=== PATIENT | female | born 2000 | race Caucasian/White ===

== ENCOUNTER 2024-07-27 11:03 | Inpatient (IN) | payer MEDICAID ==
[~2024-07-27] VITALS: Ht 170.2 cm; Wt 116.1 kg
[2024-07-27] MEDS ORDERED: LEVO75 PO (11:36)
[2024-07-27] MEDS ORDERED: FAMO20 PO (11:36)
[2024-07-27] MEDS ORDERED: RISP1TAB48 PO (11:36)
[2024-07-27] MEDS ORDERED: RISP2TAB45 PO (11:36)
[2024-07-27 11:52] LABS: COVID AG,FIA SOURCE NASAL SWAB
[2024-07-27 11:56] LABS: BASOPHILS % (AUTO) 0.4 % (0.0-2.0); EOSINOPHILS % (AUTO) 2.1 % (1.0-6.0); HEMATOCRIT 41.2 % (36-46); HEMOGLOBIN 13.6 g/dL (12.0-16.0); LYMPHOCYTES # (AUTO) 1.6 K/uL (1.0-4.8); LYMPHOCYTES % (AUTO) 38.7 % (22.0-44.0); MEAN CORPUSCULAR HEMOGLOBIN 30.4 pg (26.0-34.0); MEAN CORPUSCULAR HGB CONC 33.1 G/dL (31.0-37.0); MEAN CORPUSCULAR VOLUME 92 fL (80-100); MONOCYTES # (AUTO) 0.3 K/uL (0.1-1.0); MONOCYTES % (AUTO) 8.6 % (2.0-9.0); NEUTROPHILS % (AUTO) 50.2 % (40.0-70.0); PLATELET COUNT (AUTO) 198 K/uL (150-450); RED BLOOD CELL COUNT(AUTO) 4.48 MIL/uL (4.00-5.20); RED CELL DISTRIBUTION WIDTH 11.8 % (11.5-14.5)
[2024-07-27 12:12] LABS: SARS-COV2 (COVID) ANTIGEN,FIA Negative (Negative)
[2024-07-27 12:16] LABS: ANION GAP 2 mmol/L (8-16); CALCIUM, TOTAL 8.7 mg/dL (8.8-10.5); CARBON DIOXIDE 28 mmol/L (22-29); CHLORIDE 101 mmol/L (98-107); CREATININE 0.76 mg/dL (0.60-1.30); GLOMERULAR FILTR. RATE CALC > 60 mL/min (>60); GLUCOSE,RANDOM 78 mg/dL (70-110); POTASSIUM 3.8 mmol/L (3.5-5.1); SODIUM SERUM 131 mmol/L (136-145); UREA NITROGEN, BLOOD 10 mg/dL (7-18)
[2024-07-27 12:26] LABS: ALCOHOL, URINE DRUG SCREEN NEGATIVE (NEGATIVE); AMPHET/METH SCREEN,URINE NEGATIVE (NEGATIVE); BARBITURATE SCREEN, URINE NEGATIVE (NEGATIVE); BENZODIAZEPINES SCREEN,URINE NEGATIVE (NEGATIVE); CANNABINOID SCREEN,URINE NEGATIVE (NEGATIVE); COCAINE SCREEN,URINE NEGATIVE (NEGATIVE); METHADONE SCREEN, URINE NEGATIVE (NEGATIVE); OPIATE SCREEN,URINE NEGATIVE (NEGATIVE); PHENCYCLIDINE SCREEN,URINE NEGATIVE (NEGATIVE)
[2024-07-27 12:37] LABS: ALCOHOL, BLOOD (SERUM) < 3 mg/dL (0-10)
[2024-07-27] MEDS: QUEtiapine FUMARATE 100 MG TABLET PO ONE (15:15)
[2024-07-27] MEDS: LORazepam 1 MG TABLET PO ONE (15:15)
[2024-07-27] MEDS ORDERED: LOPERAMIDE HCL 2 MG CAPSULE PO PRN (15:30)
[2024-07-27] MEDS ORDERED: QUEtiapine FUMARATE 100 MG TABLET PO PRN (15:30)
[2024-07-27] MEDS ORDERED: MAGNESIUM HYDROXIDE SUSPENSION 30 ML UDCUP PO PRN (15:30)
[2024-07-27] MEDS ORDERED: ZOLPIDEM TARTRATE 10 MG TABLET PO PRN (15:30)
[2024-07-27] MEDS: FLUCONAZOLE 150 MG TABLET PO ONE (15:53)
[2024-07-28 02:38] VITALS: O2SAT 100
[2024-07-28 03:54] VITALS: BP 111/68; PULSE 72; RESP 18; TEMP 96.9; O2SAT 99
[2024-07-28] MEDS ORDERED: INFLUENZA VIRUS VACCINE TVS (6MO+) 2024-25/PF 45 MCG/0.5 ML SYRINGE IM. ONE (06:45)
[2024-07-28 09:18] VITALS: BP 119/68; PULSE 80; RESP 15; TEMP 97.8; O2SAT 98
[2024-07-28] MEDS ORDERED: PETROLATUM,WHITE 28 GM JELLY TP PRN (10:15)
[2024-07-28] MEDS ORDERED: LOPERAMIDE HCL 2 MG CAPSULE PO PRN (10:15)
[2024-07-28] MEDS ORDERED: DOCUSATE SODIUM 100 MG CAPSULE PO PRN (10:15)
[2024-07-28] MEDS ORDERED: ONDANSETRON 4 MG TABLET PO PRN (10:15)
[2024-07-28] MEDS ORDERED: MAG HYDROX/ALUMINUM HYD/SIMETH ES 30 ML SUSPENSION UDCUP PO PRN (10:15)
[2024-07-28] MEDS ORDERED: GuaiFENesin/D-METHORPHAN [SUGAR-FREE] 200-20MG/10 ML SYRUP UDCUP PO PRN (10:15)
[2024-07-28] MEDS ORDERED: CloNIDine HCL 0.1 MG TABLET PO PRN (10:15)
[2024-07-28] MEDS ORDERED: NICOTINE 14 MG/24 HOUR PATCH TD PRN (10:15)
[2024-07-28] MEDS ORDERED: ALBUTEROL SULFATE HFA 90 MCG/PUFF 8 GM INHALER IH PRN (10:15)
[2024-07-28] MEDS ORDERED: ACETAMINOPHEN 325 MG TABLET PO PRN (10:15)
[2024-07-28] MEDS: SERTRALINE HCL 50 MG TABLET PO SCH (10:37)
[2024-07-28] MEDS: RisperiDONE 2 MG TABLET PO SCH (10:42)
[2024-07-28] MEDS: OXcarbazepine 300 MG TABLET PO SCH (13:34)
[2024-07-28] MEDS: FAMOTIDINE 20 MG TABLET PO SCH (16:03)
[2024-07-28 20:05] VITALS: BP 111/63; PULSE 77; RESP 17; TEMP 97.8
[2024-07-28] MEDS: BREXPIPRAZOLE 2 MG TABLET PO SCH (21:00)
[2024-07-29 08:21] VITALS: RESP 16
[2024-07-29] MEDS: LEVOTHYROXINE SODIUM 75 MCG TABLET PO SCH (08:21)
[2024-07-29 08:46] LABS: BASOPHILS % (AUTO) 0.6 % (0.0-2.0); EOSINOPHILS % (AUTO) 2.6 % (1.0-6.0); HEMATOCRIT 39.9 % (36-46); HEMOGLOBIN 13.4 g/dL (12.0-16.0); LYMPHOCYTES # (AUTO) 2.1 K/uL (1.0-4.8); LYMPHOCYTES % (AUTO) 39.6 % (22.0-44.0); MEAN CORPUSCULAR HEMOGLOBIN 30.8 pg (26.0-34.0); MEAN CORPUSCULAR HGB CONC 33.6 G/dL (31.0-37.0); MEAN CORPUSCULAR VOLUME 92 fL (80-100); MONOCYTES # (AUTO) 0.5 K/uL (0.1-1.0); MONOCYTES % (AUTO) 9.3 % (2.0-9.0); NEUTROPHILS # (AUTO) 2.6 K/uL (1.8-7.7); NEUTROPHILS % (AUTO) 47.9 % (40.0-70.0); PLATELET COUNT (AUTO) 206 K/uL (150-450); RED BLOOD CELL COUNT(AUTO) 4.35 MIL/uL (4.00-5.20); RED CELL DISTRIBUTION WIDTH 12.3 % (11.5-14.5); WHITE BLOOD COUNT (AUTO) 5.4 K/uL (4.5-11.0)
[2024-07-29 09:17] LABS: ALANINE AMINOTRANSFERASE 33 U/L (12-78); ALBUMIN 3.2 g/dL (3.4-5.0); ALKALINE PHOSPHATASE 114 U/L (46-116); ANION GAP 1 mmol/L (8-16); ASPARTATE AMINOTRANSFERASE 16 U/L (15-37); BILIRUBIN,TOTAL 0.1 mg/dL (0.1-1.0); CALCIUM, TOTAL 8.5 mg/dL (8.8-10.5); CARBON DIOXIDE 29 mmol/L (22-29); CHLORIDE 101 mmol/L (98-107); CHOL/HDL RATIO 2.2 (3.9-5.7); CHOLESTEROL 151 mg/dL (131-200); CREATININE 0.85 mg/dL (0.60-1.30); FREE T4 (FREE THYROXINE) 0.74 ng/dL (0.76-1.46); GLOMERULAR FILTR. RATE CALC > 60 mL/min (>60); GLUCOSE,RANDOM 100 mg/dL (70-110); HCG,QUANTITATIVE < 1 mIU/mL (0-6); HDL CHOLESTEROL 68 mg/dL (40-60); LDL CHOL (CALC.) 77 mg/dL (0-130); POTASSIUM 4.2 mmol/L (3.5-5.1); SODIUM SERUM 131 mmol/L (136-145); THYROID STIMULATING HORMONE 2.67 uIU/mL (0.36-3.74); TRIGLYCERIDES 32 mg/dL (15-150); UREA NITROGEN, BLOOD 14 mg/dL (7-18)
[2024-07-29] MEDS: LORazepam 2 MG TABLET PO PRN (10:30)
[2024-07-29 10:58] VITALS: RESP 16
[2024-07-29] MEDS: IBUPROFEN 400 MG TABLET PO PRN (10:58)
[2024-07-29 11:58] VITALS: RESP 16
[2024-07-29] MEDS: MAG HYDROX/ALUMINUM HYD/SIMETH ES 30 ML SUSPENSION UDCUP PO PRN (18:04)
[2024-07-29 20:16] VITALS: BP 120/60; PULSE 88; RESP 18; TEMP 97.7; O2SAT 100
[2024-07-29 20:25] VITALS: RESP 18
[2024-07-29 21:28] VITALS: RESP 18
[2024-07-30 08:14] VITALS: BP 116/79; PULSE 84; RESP 16; TEMP 97.9; O2SAT 98
[2024-07-30 13:03] VITALS: RESP 17
[2024-07-30] MEDS: ACETAMINOPHEN 325 MG TABLET PO PRN (13:03)
[2024-07-30] MEDS: AMOX TR/POT CLAV 500 MG/125 MG TABLET PO SCH (16:31)
[2024-07-30] MEDS: BACITRACIN 28 GM OINTMENT TP SCH (16:31)
[2024-07-30] MEDS: PredniSONE 10 MG TABLET PO ONE (20:23)
[2024-07-30] MEDS: DiphenhydrAMINE HCL 25 MG CAPSULE PO ONE (20:23)
[2024-07-30 20:45] VITALS: BP 114/61; PULSE 83; RESP 19; TEMP 98; O2SAT 99
[2024-07-30] MEDS: FAMOTIDINE 20 MG TABLET PO ONE (20:46)
[2024-07-30 20:47] VITALS: RESP 18
[2024-07-31] MEDS: LEVOTHYROXINE SODIUM 75 MCG TABLET PO SCH (06:52)
[2024-07-31 08:06] VITALS: BP 117/71; PULSE 88; RESP 16; TEMP 97.6; O2SAT 100
[2024-07-31] MEDS: MAGNESIUM HYDROXIDE SUSPENSION 30 ML UDCUP PO PRN (13:03)
[2024-07-31 19:55] VITALS: RESP 18
[2024-07-31 20:58] VITALS: RESP 17
[2024-07-31 21:23] VITALS: BP 102/56; PULSE 86; RESP 17; TEMP 98.3; O2SAT 99
[2024-08-01] MEDS ORDERED: DiphenhydrAMINE HCL 25 MG CAPSULE PO PRN (00:15)
[2024-08-01 09:02] VITALS: RESP 17
[2024-08-01 09:44] VITALS: RESP 18
[2024-08-01 10:02] VITALS: RESP 18
[2024-08-01 10:54] VITALS: RESP 17
[2024-08-01 11:54] VITALS: RESP 17
[2024-08-01] MEDS: TraMADol HCL 50 MG TABLET PO PRN (13:06)
[2024-08-01] MEDS ORDERED: OXCA600T19 PO (15:38)
[2024-08-01] MEDS ORDERED: BREX4TAB PO (15:38)
[2024-08-01] MEDS ORDERED: SERT-158 PO (15:38)
== END 2024-08-01 17:30 | DRG 750 ==
LOC: EMS 11:03 → B3A 07-28 01:09
PROVIDERS: ADMIT Psychiatry & Neurology Psychiatry; ATTEND Psychiatry & Neurology Psychiatry
PROC: GZHZZZZ Group Psychotherapy (ICD-10-PCS; principal; 2024-07-28)
PROC: GZ52ZZZ Individual Psychotherapy, Cognitive (ICD-10-PCS; 2024-07-29)
DX: F25.0 Schizoaffective disorder, bipolar type (principal); R45.851 Suicidal ideations; R56.9 Unspecified convulsions; F84.0 Autistic disorder; Z20.822 Contact with and (suspected) exposure to COVID-19; E03.9 Hypothyroidism, unspecified; K21.9 Gastro-esophageal reflux disease without esophagitis; F32.9 Major depressive disorder, single episode, unspecified; Z79.899 Other long term (current) drug therapy; Z88.8 Allergy status to other drugs, medicaments and biological substances; Z86.011 Personal history of benign neoplasm of the brain
CPT/HCPCS: 80048; 80053; 80061; 80307; 83036; 84439; 84443; 84702; 85025; 99285; G0480